=== PATIENT | male | born 1965 | race Caucasian/White ===

== ENCOUNTER 2020-10-28 14:01 | Outpatient (CLI) | payer OTHER, SELFPAY ==
[2020-10-28 14:42] LABS: Hematocrit 49.6 % (42.0-52.0); Hemoglobin 17.2 g/dL (14.0-18.0); Mean Corpuscular HGB Conc 34.7 g/dl (32-36); Mean Corpuscular Hemoglobin 29.6 pg (26-34); Mean Corpuscular Volume 85.4 fl (80-100); Mean Platelet Volume 8.9 fl (7.4-10.4); Platelet Count Result 303 k/mm3 (150-375); Red Blood Count 5.81 M/mm3 (4.6-6.20); Red Cell Distribution Width 12.9 % (11.5-14.5); White Blood Count 9.4 K/mm3 (4.5-10.0)
[2020-10-28 14:48] LABS: Alanine Aminotransferase 44 U/L (4-50); Albumin Level 4.7 g/dL (3.5-5.1); Alkaline Phosphatase 69 U/L (38-126); Anion Gap 8 mmol/L (8-16); Aspartate Amino Transferase 40 U/L (17-59); Blood Urea Nitrogen 15 mg/dL (9-20); Calcium 9.9 mg/dL (8.4-10.2); Carbon Dioxide 30 mmol/L (22-30); Chloride 105 mmol/L (98-107); Estimated Glomerular Filt Rate > 60; Glucose 94 mg/dL (75-110); Potassium 4.2 mmol/L (3.4-5.0); Sodium 143 mmol/L (137-145)
[2020-10-28 14:49] LABS: Cholesterol 139 mg/dL (0-200); HDL Direct 37 mg/dL; Triglycerides 138 mg/dL (<150)
[2020-10-28 15:00] LABS: LDL Cholesterol Direct 69 mg/dL
== END 2020-10-28 14:02 | disposition home or self-care (01) ==
PROVIDERS: PCP Family Medicine; Referring Provider Nurse Practitioner Family; Visit Provider Family Medicine
DX: E78.2 Mixed hyperlipidemia (principal); R10.9 Unspecified abdominal pain
CPT/HCPCS: 36415; 80053; 80061; 85027

== ENCOUNTER → 2021-03-05 15:10 | Outpatient (CLI) | payer OTHER, SELFPAY ==
--- NOTE | ~2021-03-05 | XR_ITS ---
XR abdomen/kub 1V DATE: 03/05/2021 15:33 INDICATION: Abdominal pain TECHNIQUE: AP rejection, 2 views COMPARISON: 10/02/2019 CT abdomen pelvis FINDINGS: There is a moderately prominent of fecal material in the colon but no apparent bowel obstru ction. The psoas shadows are intact. No visceromegaly or significant abnormal calcification is noted. Heart size appears normal. Lung bases appear clear. Degenerative spurring of the thoracic and lumbar spine. IMPRESSION: Nonspecific abdomen Reviewed, dictated and finalized at [facility]. Reviewed, dictated and finalized at location [facility]. IMPRESSION: Nonspecific abdomen
== END ==
PROVIDERS: Visit Provider Nurse Practitioner Family
DX: R10.9 Unspecified abdominal pain (principal); R31.9 Hematuria, unspecified
CPT/HCPCS: 74018

== ENCOUNTER → 2021-03-30 09:23 | Outpatient (CLI) | payer OTHER, SELFPAY ==
--- NOTE | ~2021-03-30 | CT_ITS ---
EXAMINATION: CT abdomen pelvis w con EXAM DATE: 03/30/2021 10:10 INDICATION: Upper abdominal pain. TECHNIQUE: Spiral CT of the abdomen and pelvis was performed following intravenous injection of 100 m L Omnipaque 350. Axial, coronal and sagittal images of the abdomen and pelvis were reviewed. The do se-length product (DLP) for this examination was 1160.91 mGy-cm. The exposure was tailored according to patient size (auto mA exposure control), and iterative reconstruction (ASIR) was used as addition al dose reduction technique. Comparison is made to prior examination from 10/02/2019. FINDINGS: The liver, spleen, adrenal glands and pancreas are unremarkable. Gallbladder is unremarka ble. No biliary obstruction. Portal and splenic veins are patent. Kidneys enhance symmetrically. There is no hydronephrosis. The prostate is unremarkable. The bladder is unremarkable. There is n o retroperitoneal or pelvic lymphadenopathy. There is mild scattered arteriosclerotic disease. Smal l umbilical and left inguinal fat-containing hernias. Small to moderate-sized right inguinal fat-cont aining hernia. The appendix is normal. There is moderate colonic diverticulosis. There is no adjacent inflammatory change to suggest diverticulitis. The stomach and small bowel are unremarkable. There is expected a mount of colonic stool. No free intraperitoneal gas. The heart is normal in size. There are no p ericardial or pleural effusions. The lung bases are unremarkable. There are no osteoblastic or oste olytic lesions identified. IMPRESSION: 1. No acute intra-abdominal findings. 2. Moderate colonic diverticulosis. 3. Fat-containing inguinal, umbilical hernias. Reviewed, dictated and finalized at location [facility].
[2021-03-30 09:41] LABS: Estimated Glomerular Filt Rate > 60
== END ==
PROVIDERS: PCP Family Medicine; Visit Provider Family Medicine
DX: R10.9 Unspecified abdominal pain (principal); K57.30 Diverticulosis of large intestine without perforation or abscess without bleeding; K42.9 Umbilical hernia without obstruction or gangrene; K40.90 Unilateral inguinal hernia, without obstruction or gangrene, not specified as recurrent
CPT/HCPCS: 74177; Q9967

== ENCOUNTER 2021-11-27 01:20 | Day surgery (SDC) | payer OTHER, SELFPAY ==
[2021-11-23 15:48] VITALS: BMI 33.9
--- NOTE | 2021-11-26 13:17 | WPDGICN ---
Assessment and Plan Assessment and plan (1) Colon cancer screening: Code(s): Z12.11 - Encounter for screening for malignant neoplasm of colon Status: Acute Assessment and Plan: Colonoscopy with possible biopsy or polypectomy or cautery or injection of substances. GI Consult Note Consult date/time: 11/26/21 13:17 HPI: Scottie Pereira is a 56 year old male was found have multiple polyps about 3.5 years ago. He had several adenomas removed from his descending colon at that time, as well as hyperplastic rectal polyps. Review of Systems Review of Systems: All systems reviewed & are unremarkable except as noted in HPI and below PMFSH Past Medical History Medical History BMI 34.0-34.9,adult COVID-19 Family History Family History Mother Family history of multiple sclerosis Grandparent Cerebrovascular accident Family history of lung cancer Diabetes mellitus Father No problems noted. Sibling Lupus Social History Social History Smoking status: Never smoker Second hand tobacco smoke exposure: No Alcohol intake: current Drinks per week: 1 Substance use: never Substance use type: does not use Living arrangements: alone Additional occupation/education comments: marketing Gender identity (if verbalized by the patient): Male Spiritual care concerns: No Meds Home Medications and Allergies Home Medications Medication Instructions Recorded Confirmed Type lisinopril 40 mg tablet 40 mg PO DAILY #90 tablet 07/13/21 11/23/21 Rx atorvastatin 40 mg tablet See Rx Instructions .ROUTE 09/17/21 11/23/21 Rx .COMPLEX #90 tablet hydrochlorothiazide 25 mg tablet 25 mg PO DAILY #90 tablet 09/24/21 11/23/21 Rx Allergies Allergy/AdvReac Type Severity Reaction Status Date / Time No Known Allergies Allergy Verified 11/27/21 09:02 Exam Resp: Auscultation: clear to auscultation bilaterally Cardio: Rate: regular rate Rhythm: regular rhythm GI: GI Palp: Yes Soft to palpation and No Tenderness to palpation present (GI)
[2021-11-27 09:03] VITALS: BP 147/90; PULSE 104; RESP 18; TEMP 36.3; O2SAT 98; BMI 33.3
[2021-11-27] MEDS: LACTATED RINGERS 1,000 ML 150 ML IV CONT (09:13)
--- NOTE | 2021-11-27 09:21 | P.PNAN_ITS ---
Anes - Initial Pre Proc Eval Procedure: Operation Date: 11/27/21 10:00 Proposed Procedures p Screening Colonoscopy - Doug Medley MD Date/Time: 11/27/21 09:21 Surgeon: Doug Medley MD Pre Op Diagnosis: hx of colon polyps, neoplasm screening Patient Data Age: 56 Gender: M Height: 1.83 m Weight: 111.6 kg Last Vital Signs Temp 97.4 F L 11/27/21 09:03 Pulse 104 H 11/27/21 09:03 Resp 18 11/27/21 09:03 BP 147/90 H 11/27/21 09:03 Pulse Ox 98 11/27/21 09:03 Allergies Allergy/AdvReac Type Severity Reaction Status Date / Time No Known Allergies Allergy Verified 11/27/21 09:02 Home Medications Medication Instructions Recorded Confirmed Type lisinopril 40 mg tablet 40 mg PO DAILY #90 tablet 07/13/21 11/23/21 Rx atorvastatin 40 mg tablet See Rx Instructions .ROUTE 09/17/21 11/23/21 Rx .COMPLEX #90 tablet hydrochlorothiazide 25 mg tablet 25 mg PO DAILY #90 tablet 09/24/21 11/23/21 Rx Patient hx anesthesia problems: none Family hx anesthesia problems: none Results Review: All pre-operative results and documents have been reviewed as part of the pre-operative evaluation. [facility] Past Medical History Medical History BMI 34.0-34.9,adult COVID-19 Family History Family History Mother Family history of multiple sclerosis Grandparent Cerebrovascular accident Family history of lung cancer Diabetes mellitus Father No problems noted. Sibling Lupus Social History Social History Smoking status: Never smoker Second hand tobacco smoke exposure: No Alcohol intake: current Drinks per week: 1 Substance use: never Substance use type: does not use Living arrangements: alone Additional occupation/education comments: marketing Gender identity (if verbalized by the patient): Male Spiritual care concerns: No Anes - Eval Final PreProcedure Day of Procedure 11/27/21 09:21 Patient weight: obese Heart: regular rate and rhythm Lungs: clear to auscultation Airway: Mallampati scale class II Neurological: alert and oriented Last oral intake: >/= 8 hours ASA classification: III Emergent: no Anesthetic plan: proceed Anesthesia type and monitoring: general GIVS and standard monitoring Results Review: All pre-operative results and documents have been reviewed as part of the pre-operative evaluation. Informed Consent: The patient's anesthetic plan and its attendant risks and benefits were discussed with the patient/family/POA. Questions were solicited and answers provided to the satisfaction of the patient/family/POA.
[2021-11-27] MEDS: SIMETHICONE ORAL SUSPENSION 20 MG/0.3 ML 30 ML BOTTLE 0.6 ML IRRIGATION (10:04)
[2021-11-27 10:12] VITALS: BP 109/63; PULSE 97; RESP 26; O2SAT 98
[2021-11-27 10:22] VITALS: BP 110/70; PULSE 80; RESP 17; O2SAT 98
[2021-11-27 10:39] VITALS: BP 116/70; PULSE 77; RESP 16; O2SAT 98
== END 2021-11-27 10:50 | disposition home or self-care (01) ==
PROVIDERS: PCP Family Medicine; Visit Provider Internal Medicine Gastroenterology
PROC: 0DJD8ZZ Inspection of Lower Intestinal Tract, Via Natural or Artificial Opening Endoscopic (ICD-10-PCS; CPT 45378; principal; 2021-11-27 10:00)
DX: Z12.11 Encounter for screening for malignant neoplasm of colon (principal); K57.30 Diverticulosis of large intestine without perforation or abscess without bleeding
CPT/HCPCS: G0105; J2001; J2704; J7120

== ENCOUNTER → 2022-10-29 10:06 | Outpatient (CLI) | payer OTHER, SELFPAY ==
--- NOTE | ~2022-10-29 | XR_ITS ---
Right ankle Technique: AP and lateral views were obtained. Clinical History: Pain Findings: No acute fracture or dislocation is seen. Osseous alignment is anatomic. Ankle mortise and other visualized joint spaces are preserved. Lateral soft tissue swelling noted. Enthesopathic change noted at the Achilles tendon insertion. Small plantar calcaneal spur present. Impression: No acute fracture or dislocation. Lateral soft tissue swelling. Other chronic findings as above. Reviewed, dictated and finalized at location . [employer] Impression: No acute fracture or dislocation. Lateral soft tissue swelling. Other chronic findings as above.
== END ==
PROVIDERS: PCP Family Medicine; Visit Provider Nurse Practitioner Family
DX: M25.571 Pain in right ankle and joints of right foot (principal); R60.9 Edema, unspecified
CPT/HCPCS: 73600

== ENCOUNTER → 2023-02-18 07:08 | Outpatient (CLI) | payer OTHER, SELFPAY ==
--- NOTE | ~2023-02-18 | XR_ITS ---
Lumbosacral Spine: AP and lateral views Clinical History: Pain Findings: The normal lordotic curve is maintained. The vertebral bodies and posterior elements are i ntact. The intervertebral disc spaces are preserved. There are prominent anterior osteophytes extend ing from L1 through L4. There is severe facet arthropathy at L4-L5 and L5-S1. There is moderate facet arthropathy upper lumbar spine. The sacroiliac joints are normally outlined. Impression: Moderate degenerative spondylosis, as above. Reviewed, dictated and finalized at location [facility]. Impression: Moderate degenerative spondylosis, as above.
== END ==
PROVIDERS: PCP Family Medicine; Visit Provider Nurse Practitioner Family
DX: M47.817 Spondylosis without myelopathy or radiculopathy, lumbosacral region (principal)
CPT/HCPCS: 72100

== ENCOUNTER → 2023-07-20 12:54 | Outpatient (CLI) | payer OTHER, SELFPAY ==
--- NOTE | ~2023-07-20 | XR_ITS ---
EXAMINATION: XR ankle LT 2V DATE: 07/20/2023 13:20 INDICATION: Left ankle effusion and swelling and pain. TECHNIQUE: 2 views of left ankle were obtained. COMPARISON: None. FINDINGS: Bone alignment is normal. No fracture. There is mild osteoarthritis of talonavicular joint. There is heterotopic ossification distal to medial malleolus. There are enthesophytes at the posteri or and plantar aspects of calcaneal tuberosity. IMPRESSION: 1. Mild talonavicular joint osteoarthritis. Reviewed, dictated and finalized at location [facility].
== END ==
PROVIDERS: PCP Family Medicine; Visit Provider Nurse Practitioner Family
DX: M19.072 Primary osteoarthritis, left ankle and foot (principal)
CPT/HCPCS: 73600

== ENCOUNTER → 2023-09-09 12:32 | Outpatient (CLI) | payer OTHER, SELFPAY ==
--- NOTE | ~2023-09-09 | XR_ITS ---
EXAMINATION: XR thoracic spine 3V DATE: 09/09/2023 12:50 INDICATION: Thoracic spine pain TECHNIQUE: AP, lateral and lateral swimmer's views of the thoracic spine were obtained. COMPARISON: None. FINDINGS: Bone alignment is normal. There is no fracture. There is mild loss of intervertebral disc s pace height at multiple levels in the thoracic spine. The vertebral body heights are maintained. Ther e are bridging osteophytes at multiple levels in the spine, consistent with diffuse idiopathic skelet al hyperostosis (DISH). IMPRESSION: 1. No acute osseous abnormality. Reviewed, dictated and finalized at location [facility]. [employer] ADMINISTRATOR
== END ==
PROVIDERS: PCP Family Medicine; Visit Provider Nurse Practitioner Family
DX: M54.6 Pain in thoracic spine (principal)
CPT/HCPCS: 72072

== ENCOUNTER 2023-11-19 14:09 | Emergency (ER) | payer OTHER, SELFPAY ==
[2023-11-19 14:20] VITALS: BP 155/93; PULSE 93; RESP 16; TEMP 36.8; O2SAT 100
--- NOTE | 2023-11-19 15:40 | ED.EXTPRO ---
HPI - Extremity Problem General Chief complaint: Extremity Problem,Nontraumatic Stated complaint: Foot Pain Time Seen by Provider: 11/19/23 14:50 Source: patient and RN notes reviewed Mode of arrival: ambulatory Limitations: no limitations History of Present Illness HPI Narrative: Patient presents today complaining of right foot pain and redness x5 days. Symptoms have been progressively worsening since onset. Currently rates pain 8/10 with weight-bearing, 3/10 at rest. He has been taking ibuprofen with some mild relief. Denies numbness or tingling in the leg or foot. No pain in the lower leg or calf. Patient takes allopurinol and is just getting over a gout flare in the left ankle. Related Data Allergies Allergy/AdvReac Type Severity Reaction Status Date / Time No Known Allergies Allergy Verified 11/19/23 14:13 Review of Systems Review of Systems: CONSTITUTIONAL: Denies body aches, fever, chills, or sweats. EYES: Denies visual changes, redness, or discharge. ENT: Denies rhinorrhea, congestion, sore throat, or otalgia. CARDIOVASCULAR: Denies chest pain, palpitations, or edema. RESPIRATORY: Denies cough or dyspnea. GASTROINTESTINAL: Denies abdominal pain, nausea, vomiting, or diarrhea. GENITOURINARY: Denies dysuria or hematuria. SKIN: Denies rash, itching, or wounds. MUSCULOSKELETAL: Denies back pain, or myalgia.+ right foot pain, redness, swelling NEUROLOGIC: Denies headache, numbness, tingling, or weakness. PSYCH: Denies depression or anxiety. [facility] Past Medical History Medical History BMI 31.0-31.9,adult BMI 33.0-33.9,adult BMI 34.0-34.9,adult COVID-19 Family History Family History Mother Family history of multiple sclerosis Grandparent Cerebrovascular accident Family history of lung cancer Diabetes mellitus Father No problems noted. Sibling Lupus Social History Social History Smoking status: Never smoker Second hand tobacco smoke exposure: No Alcohol intake: current Drinks per week: 1 Substance use: never Substance use type: does not use Lack of Transportation: No Lack of Food: Never True Current Housing: I Have Housing Concerned About Future Housing: No Difficulty Paying Gas/Electric Bills: No Difficulty Paying for Meds: No Currently Unemployed: No Education: Bachelor's Degree Difficulty w/ Childcare or Family Care: No Living arrangements: alone Occupation/Education: occupation Additional occupation/education comments: marketing Gender identity (if verbalized by the patient): Male Spiritual care concerns: No Comments At time of signature, I have reviewed and agree with nursing past medical, surgical, social and family history unless otherwise noted. Please see nursing chart for further information. There is no relevant family history pertinent to the presenting complaint Exam Narrative: GENERAL: Well-appearing, well-nourished, and in no acute distress. HEAD: Normocephalic, atraumatic. EYES: EOMI. No redness or drainage. Conjunctivae normal. ENT: Mucous membranes pink and moist. NECK: Normal AROM. CHEST: No respiratory distress. EXTREMITIES: Right foot: Moderate erythema over the dorsum of the foot with mild edema. The symptoms do not extend past the foot onto the ankle. Tenderness to the foot and on to the anterior ankle. No tenderness to the medial or lateral ankle. No tenderness, erythema, or edema to the lower leg. Negative Homans. Distal sensation intact. Capillary refill normal. Pedal pulse normal. Full range of motion of the ankle with mild increased pain in the anterior ankle. SKIN: Warm, dry, no rash. Capillary refill normal. Normal skin turgor. NEURO: No focal deficits. Alert and oriented x3. Gait steady. PSYCH: No
== END 2023-11-19 15:26 | disposition home or self-care (01) ==
PROVIDERS: Emergency Provider Nurse Practitioner; PCP Family Medicine
DX: M10.9 Gout, unspecified (principal); Z86.16 Personal history of COVID-19
CPT/HCPCS: 99213; G0463

== ENCOUNTER 2023-11-21 16:49 | Outpatient (CLI) | payer OTHER, SELFPAY ==
[2023-11-21 17:20] LABS: Alanine Aminotransferase 27 U/L (6-50); Albumin Level 4.3 g/dL (3.5-5.1); Alkaline Phosphatase 96 U/L (38-126); Anion Gap 8 mmol/L (8-16); Aspartate Amino Transferase 26 U/L (17-59); Bilirubin,Total 0.7 mg/dL (0.2-1.3); Blood Urea Nitrogen 23 mg/dL (9-20); Calcium 9.6 mg/dL (8.4-10.2); Carbon Dioxide 29 mmol/L (22-30); Chloride 103 mmol/L (98-107); Estimated Glomerular Filt Rate > 60; Glucose 150 mg/dL (65-110); Potassium 3.9 mmol/L (3.4-5.0); Sodium 140 mmol/L (137-145); Uric Acid 6.3 mg/dL (3.5-8.5)
== END 2023-11-21 16:50 | disposition home or self-care (01) ==
LOC: ANHLAB 16:51
PROVIDERS: PCP Family Medicine; Visit Provider Podiatrist Foot & Ankle Surgery
DX: M10.9 Gout, unspecified (principal)
CPT/HCPCS: 36415; 80053; 84550

== ENCOUNTER 2024-02-25 08:21 | Outpatient (CLI) | payer OTHER, SELFPAY ==
--- NOTE | ~2024-02-25 | MR_ITS ---
MRI of the thoracic spine Clinical History: Ankylosing hyperostosis Technique: Axial T2-weighted and gradient images, and sagittal T1-weighted, T2-weighted, and STIR matthieu ges were acquired. Findings: There is no acute fracture or subluxation of the thoracic spine. Possible minimal chronic anterior wedging deformities of the lower thoracic spine. No suspicious bone marrow signal abnormality seen. There is mild degenerative change of the thoracic spine. No significant disc bulge or herniation seen at any thoracic level. No spinal canal stenosis identifi ed. Neural foramina appear intact. No epidural mass or collection. Paravertebral soft tissues are unremarkable. Impression: Mild degenerative spondylosis, as above. Possible minimal chronic anterior wedging deformities of lower thoracic spine vertebral bodies. Reviewed, dictated and finalized at [facility]. Impression: Mild degenerative spondylosis, as above. Possible minimal chronic anterior wedging deformities of lower thoracic spine v ertebral bodies.
== END 2024-02-25 08:22 ==
PROVIDERS: PCP Family Medicine; Visit Provider Nurse Practitioner Family
DX: M48.10 Ankylosing hyperostosis [Forestier], site unspecified (principal); M54.6 Pain in thoracic spine
CPT/HCPCS: 72146

== ENCOUNTER 2024-02-27 16:04 | Outpatient (CLI) | payer OTHER, SELFPAY ==
[2024-02-27 17:06] LABS: Alanine Aminotransferase 25 U/L (6-50); Alkaline Phosphatase 85 U/L (38-126); Anion Gap 5 mmol/L (4-12); Aspartate Amino Transferase 23 U/L (17-59); Bilirubin,Total 0.8 mg/dL (0.2-1.3); Blood Urea Nitrogen 19 mg/dL (9-20); Calcium 8.9 mg/dL (8.4-10.2); Carbon Dioxide 30 mmol/L (22-30); Chloride 105 mmol/L (98-107); Estimated Glomerular Filt Rate > 60; Glucose 123 mg/dL (65-110); Sodium 140 mmol/L (137-145); Uric Acid 5.9 mg/dL (3.5-8.5)
== END 2024-02-27 16:05 | disposition home or self-care (01) ==
LOC: ANHLAB 16:05
PROVIDERS: PCP Family Medicine; Visit Provider Podiatrist Foot & Ankle Surgery
DX: M10.079 Idiopathic gout, unspecified ankle and foot (principal)
CPT/HCPCS: 36415; 80053; 84550

== ENCOUNTER 2024-03-13 07:04 | Outpatient (CLI) | payer OTHER, SELFPAY ==
[2024-03-13 07:20] LABS: Basophils Absolute Auto 0.1 K/mm3 (0.0-0.1); Basophils Percent Auto 0.8 % (0.2-1.2); Eosinophils Absolute Auto 0.2 K/mm3 (0-0.3); Eosinophils Percent Auto 2.3 % (0-4.4); Hematocrit 45.3 % (42.0-52.0); Hemoglobin 15.4 g/dL (14.0-18.0); Immature Granulocyte Absolute 0.02 K/mm3 (0.00-0.031); Immature Granulocyte Percent A 0.3 % (0-0.5); Lymphocytes Absolute Auto 1.92 K/mm3 (0.9-3.2); Lymphocytes Percent Auto 24.4 % (18.3-44.2); Mean Corpuscular Hemoglobin 28.9 pg (26-34); Mean Corpuscular Volume 85.2 fl (80-100); Mean Platelet Volume 9.4 fl (7.4-10.4); Monocytes Absolute Auto 0.6 K/mm3 (0.1-0.6); Neutrophils Absolute Auto 5.1 K/mm3 (1.3-6.7); Neutrophils Percent Auto 64.2 % (45.5-73.1); Platelet Count Result 219 k/mm3 (150-375); Red Blood Count 5.32 M/mm3 (4.6-6.20); Red Cell Distribution Width 13.6 % (11.5-14.5); White Blood Count 7.9 K/mm3 (4.5-10.0)
[2024-03-13 07:49] LABS: Anion Gap 7 mmol/L (4-12); Blood Urea Nitrogen 22 mg/dL (9-20); Calcium 9.2 mg/dL (8.4-10.2); Carbon Dioxide 27 mmol/L (22-30); Chloride 107 mmol/L (98-107); Cholesterol 161 mg/dL (0-200); Estimated Glomerular Filt Rate > 60; Glucose 102 mg/dL (65-110); HDL Direct 34 mg/dL; Potassium 3.8 mmol/L (3.4-5.0); Sodium 141 mmol/L (137-145); Triglycerides 259 mg/dL (<150)
[2024-03-13 08:01] LABS: LDL Cholesterol Direct 90 mg/dL
[2024-03-13 08:21] LABS: Prostate Specific Antigen 1.1 ng/mL (< OR = 4.0)
== END 2024-03-13 07:05 | disposition home or self-care (01) ==
LOC: ANHLAB 07:05
PROVIDERS: PCP Family Medicine; Visit Provider Physician Assistant Medical
DX: Z12.5 Encounter for screening for malignant neoplasm of prostate (principal); E78.2 Mixed hyperlipidemia; I10 Essential (primary) hypertension; I49.9 Cardiac arrhythmia, unspecified
CPT/HCPCS: 36415; 80048; 80061; 84153; 84443; 85025; G0103

== ENCOUNTER 2024-04-03 09:49 | Outpatient (CLI) | payer OTHER, SELFPAY ==
--- NOTE | 2024-04-06 12:10 | WPDHOLTEREM ---
Holter/Event Monitor Holter/Event Monitor Date of procedure: 04/03/24 Holter/Event Procedure: 48 Hr Holter Monitor Indications: Arrhythmia Conclusion: 1. 48 hour holter monitor on 04/03/24. 2. Underlying rhythm is sinus rhythm. HR range 55-103 bpm; average HR 72 bpm. 3. There are 2 premature supraventricular complexes. No supraventricular tachycardia. 4. There are 2,222 premature ventricular complexes, 6 ventricular bigeminy and 8 ventricular trigeminy. No ventricular tachycardia. 5. No sinoatrial or atrioventricular blocks. No significant pauses greater than 2 seconds. 6. No symptoms available for correlation.
== END 2024-04-03 09:50 | disposition home or self-care (01) ==
PROVIDERS: PCP Family Medicine; Visit Provider Physician Assistant Medical
DX: I49.9 Cardiac arrhythmia, unspecified (principal)
CPT/HCPCS: 93225; 93226

== ENCOUNTER 2024-06-19 06:59 | Outpatient (CLI) | payer OTHER, SELFPAY ==
--- NOTE | ~2024-06-19 | XR_ITS ---
2 VIEWS THORACOLUMBAR SPINE Ordering provider: Lucretia Motta NP History: . 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 . Comparison: September 09, 2023 FINDINGS: VERTEBRAL BODIES: Normal height and alignment. No visible fracture or subluxation. Degenerative hutton es of the spine. DISK SPACES: Normal. SOFT TISSUES: Normal. IMPRESSION: No acute osseous abnormality of the thoracolumbar spine. Reviewed, dictated and finalized at location A.
== END 2024-06-19 07:00 | disposition home or self-care (01) ==
PROVIDERS: PCP Family Medicine
DX: M47.814 Spondylosis without myelopathy or radiculopathy, thoracic region (principal)
CPT/HCPCS: 72080

== ENCOUNTER 2024-06-19 07:22 | Outpatient (CLI) | payer OTHER, SELFPAY ==
[2024-06-19 08:47] LABS: Anion Gap 6 mmol/L (4-12); Blood Urea Nitrogen 14 mg/dL (9-20); Calcium 9.1 mg/dL (8.4-10.2); Carbon Dioxide 28 mmol/L (22-30); Chloride 105 mmol/L (98-107); Estimated Glomerular Filt Rate > 60; Glucose 101 mg/dL (65-110); Sodium 139 mmol/L (137-145); Uric Acid 5.3 mg/dL (3.5-8.5)
== END 2024-06-19 07:23 | disposition home or self-care (01) ==
PROVIDERS: PCP Family Medicine; Visit Provider Physician Assistant Medical
DX: M10.9 Gout, unspecified (principal); N28.9 Disorder of kidney and ureter, unspecified
CPT/HCPCS: 36415; 80048; 84550

== ENCOUNTER 2024-08-30 08:19 | Outpatient (CLI) | payer OTHER, SELFPAY ==
[2024-09-24 13:40] VITALS: BMI 32.8
--- NOTE | 2024-09-24 13:40 | P.SLEEP_ITS ---
Sleep Study - Home Unattended Date of Study: 08/30/24 Ordering Provider: Tian Scott MD Interpreting Provider: Mariaelena Sharpe DO Home Sleep Study Type: Watch PAT Height: 1.8 m Weight: 106.594 kg Body Mass Index: 32.8 Neck Circumference (inches): 18 [place]: 4 Reason for Sleep Study Snoring, difficulty staying asleep Sleep History The patient is a 59-year-old male that had a sleep study ordered by his ca rdiologist for evaluation of sleep apnea for the patient admits to snoring loudly and difficulty staying asleep. He denies interruptions in breathing while asleep. He denies choking or gasping at night. He denies having trouble breathing on his back. He does have morning headaches. Does have a dry or sore mouth/ throat in the morning. He denies nocturnal heartburn. He does urinate twice throughout the night. He denies having trouble falling asleep. He does have difficulty returning to sleep if he wakes up throughout the night. He denies any hypnotic or sedative use. He denies feeling anxious about sleep. He does feel tired or sleepy during the day. He does feel tired in the morning. He denies having hours to fall asleep during the day. He does feel drowsy while driving. He denies sleep paralysis, cataplexy and hypnagogic / hypnopompic hallucinations. He denies clenching or grinding his teeth. He denies kicking or jerking his legs excessively. He denies having a restless feeling in his legs. He goes to bed at 9:30 p.m. on work days and 10:00 p.m. on his days. It takes him 30 minutes to fall asleep. He gets 7 hours of sleep per night. His sleep is not all restorative on days off. He denies taking any planned naps. He denies dream enactment behavior. He denies sleep walking. He denies consuming any caffeinated beverages throughout the day. He denies tobacco and alcohol use. He exercises 3-4 nights per week. [facility] Past Medical History Medical History COVID-19 BMI 34.0-34.9,adult Family History Family History Mother Family history of multiple sclerosis Grandparent Cerebrovascular accident Family history of lung cancer Diabetes mellitus Father No problems noted. Sibling Lupus Social History Social History Smoking status: Never smoker Second hand tobacco smoke exposure: No Alcohol intake: current Drinks per week: 1 Substance use: never Substance use type: does not use Do You Feel Safe in your Home?: Yes Lack of Transportation: No Lack of Food: Never True Current Housing: I Have Housing Concerned About Future Housing: No Difficulty Paying Gas/Electric Bills: No Difficulty Paying for Meds: No Currently Unemployed: No Education: Bachelor's Degree Difficulty w/ Childcare or Family Care: No Living arrangements: alone Occupation/Education: occupation Additional occupation/education comments: marketing Gender identity (if verbalized by the patient): Male Spiritual care concerns: No Medications Home Medications ?Medication ?Instructions ?Recorded ?Confirmed ?Type lisinopril 40 mg tablet 40 mg PO DAILY #90 tabs 01/04/24 06/25/24 Rx buspirone 7.5 mg tablet 7.5 mg PO BID #180 tabs 04/18/24 06/25/24 Rx atorvastatin 40 mg tablet See Rx Instructions .Route 07/30/24 Rx .COMPLEX #90 tabs hydrochlorothiazide 12.5 mg tablet 12.5 mg PO DAILY #30 tabs 08/12/24 Rx allopurinol 100 mg tablet 100 mg PO BID #180 tabs 08/23/24 Rx metoprolol succinate 100 mg 100 mg PO DAILY #90 tabs 09/17/24 Rx tablet,extended release 24 hr Sleep Procedure The sleep study was completed using [employer] a technically adequate device with seven channels: peripheral arterial tone, actigraphy, body position, snore, respiratory movement, pulse oximetry, sleep staging, and heart rate. Prior to using the device, the patient received verbal and written instructions for its application and was provided with the help desk phone number for additional telephonic instruction with 24-hour availability of qualified personnel to answer questions. The study was scored using CMS guidelines. Sleep Architecture The total recording time is 7 hrs, 52 min. The total sleep time is 6 hrs, 57 min. Sleep latency is 19 minutes. REM latency is 78 minutes. The patient had 7 episodes of waking. Sleep architecture shows 16.0% deep sleep, 60.0% light sleep, and (as % Total Sleep Time) showed NREM (Light 60.0%; Deep 16.0%), and a 23.9% stage REM. The patient spent 70.6% of total sleep time in the supine position. Sleep efficiency was 88.35. Respiratory Analysis The overall AHI (pAHI 4%:) is 15.0. The central AHI is 3.2. The AHI was 9.0 in NREM and 33.4 in REM sleep. The AHI was 20.2 in Supine and 1.6 in Non-supine sleep. Percent of Griffin Garcia respirations is 0.0. Oximetry Data The oxygen desaturation index (NICK 4%:) is 14.4. The mean saturation is 93%, and the lowest saturation is 82%. Time spent with saturation < 88% is 7.9 minutes. Snoring Profile Snoring average intensity is 40 dB. The patient snored above 45 decibels for 7.5 minutes, 1.8% of sleep time. Cardiac Profile The average pulse rate is 61 beats per minutes. The lowest pulse rate is 51 bpm. The highest pulse rate reported is 88 bpm. Atrial fibrillation was not detected. Premature beats occur <0.1 per minute. Assessment and Plan Assessment and Plan (1) ANTONI (obstructive sleep apnea): Code(s): G47.33 - Obstructive sleep apnea (adult) (pediatric) Status: Acute Assessment and Plan: The patient had an overall AHI of 15.0 with desaturation down to 82%. This is consistent with moderate sleep apnea. I recommend that the patient be prescribed AutoPAP 5-15 cm H2O, CPAP mask/filters/tubing and heated humidity. This should be used with all episodes of sleep.? Compliance should be reviewed within 31-90 days of starting therapy for usage greater than 4 hours per night greater than 70% of the nights. The patient should be asked about symptoms such as?excessive daytime sleepiness, quality of sleep, decreased nocturia, increased?mental functioning such as memory, mood, and concentration. Data The data obtained during this sleep study is adequate for interpretation. Certification This sleep study has been reviewed by a board certified sleep medicine physician.
== END 2024-08-31 15:03 | disposition home or self-care (01) ==
LOC: ANHCSM 08:20
PROVIDERS: PCP Family Medicine; Visit Provider Internal Medicine Cardiovascular Disease
DX: G47.33 Obstructive sleep apnea (adult) (pediatric) (principal); G47.10 Hypersomnia, unspecified
CPT/HCPCS: 95800

== ENCOUNTER 2024-11-01 07:04 | Outpatient (CLI) | payer OTHER, SELFPAY ==
--- OUTSIDE RECORDS SUMMARY | 2024-11-01 07:07 | XMS_ITS | Referral Summary ---
Author Organization [facility] Address [address] [place] [address] Care Team Providers Care Subassembly Assembler Name Role Phone Sanket Dee MD Primary Care Provider [phone] Encounters Date Type Department Care Team Description 10/02/2024 9:00 AM ULTRASOUND TECHNOL Office Visit [facility] Medical [facility] Cardiology at [address] [place] [address] Tian Lopez MD Essential hypertension (Primary Dx); Ventricular premature depolarization; Obesity (BMI 30.0-34.9); ANTONI (obstructive sleep apnea) 08/30/2024 Orders Only [facility] [place] Health Information Management [address] [place] [address] Tian Lopez MD 08/03/2024 2:00 PM ULTRASOUND TECHNOL Ancillary Procedure [facility] Medical [facility] Cardiology at [address] [place] [address] Ventricular premature depolarization; Essential hypertension from Last 3 Months Allergies No known active allergies Medications allopurinoL (ZYLOPRIM) 100 mg tablet Take 1 tablet (100 mg total) by mouth daily 06/05/2024 Active busPIRone (BUSPAR) 7.5 mg tablet Take 1 tablet (7.5 mg total) by mouth 2 (two) times a day 07/13/2024 Active atorvastatin (LIPITOR) 40 mg tablet Take 1 tablet (40 mg total) by mouth daily 04/23/2024 Active hydroCHLOROthiaz jose 12.5 mg tablet Take 1 tablet (12.5 mg total) by mouth daily 07/13/2024 Active lisinopriL (PRINIVIL,ZESTRI L) 40 mg tablet Take 1 tablet (40 mg total) by mouth daily 07/02/2024 Active metoprolol XL (TOPROL-XL) 100 mg 24 hr tablet Take 1 tablet (100 mg total) by mouth daily 06/25/2024 Active amLODIPine (NORVASC) 5 mg tabletIndication s:hypertension Take 1 tablet (5 mg total) by mouth daily 30 tablet 11 07/18/2024 Active Active Problems Problem Noted Date Diagnosed Date ANTONI (obstructive sleep apnea) 10/02/2024 Obesity (BMI 30.0-34.9) 07/18/2024 Hypersomnolence 07/18/2024 Essential hypertension 07/18/2024 Lipid screening 07/18/2024 Ventricular premature depolarization 07/18/2024 Social History Tobacco Use Types Packs/Day Years Used Date Smoking Tobacco: Never Cigarettes Smokeless Tobacco: Never Tobacco Cessation:Counseling Given: Not Answered Sex and Gender Information Value Date Recorded Sex Assigned at Not on file Legal Sex Male 4:51 AM ULTRASOUND TECHNOL Gender Identity Not on file Sexual Orientation Not on file Last Filed Vital Signs Vital Sign Reading Time Taken Comments Blood Pressure 128/86 10/02/2024 8:49 AM ULTRASOUND TECHNOL Pulse 69 10/02/2024 8:49 AM ULTRASOUND TECHNOL Temperature - - Respiratory Rate 14 07/18/2024 11:11 AM CDT Oxygen Saturation 96% 10/02/2024 8:49 AM ULTRASOUND TECHNOL Inhaled Oxygen Concentration - - Weight 112 kg (247 lb) 10/02/2024 8:49 AM ULTRASOUND TECHNOL Height 180.3 cm (5' 11 ) 10/02/2024 8:49 AM ULTRASOUND TECHNOL Body Mass Index 34.45 10/02/2024 8:49 AM ULTRASOUND TECHNOL Plan of Treatment Not on file Procedures Procedure Name Priority Date/Time Associated Diagnosis Comments SLEEP LAB/STUDY - RESULT 08/30/2024 TRANSTHORACIC ECHO (TTE) COMPLETE W DOPPLER/CF WO CONTRAST Routine 08/03/2024 2:26 PM ULTRASOUND TECHNOL Ventricular premature depolarization Essential hypertension from Last 3 Months Results * SLEEP LAB/STUDY - RESULT (08/30/2024) us Tian Lopez MD Edited Re sult - Final * TRANSTHORACIC ECHO (TTE) COMPLETE W DOPPLER/CF WO CONTRAST (08/03/2024 2:26 PM ULTRASOUND TECHNOL) Anatomical Region Laterality Modality Ultrasound 08/03/2024 1:53 PM ULTRASOUND TECHNOL Narrative 08/03/2024 5:16 PM ULTRASOUND TECHNOL [facility] Medical Group Cardiology [address] [facility], [address], [place] [address] P:[phone] P:[phone] Echocardiographic Report Patient Name: SCOTTIE PEREIRA A : 1965 Study Date: 08/03/2024 1:53:01 PM Gender: M Tech: Location: EDW Ref Provider: TIAN LOPEZ Height(Cm): 180 BSA: 2.31 Weight(Kg): 107 Heart Rate: 62 BP: 144 / 88 Quality: Good Order Provider: TIAN LOPEZ PROCEDURES: Echocardiographic Report: Transthoracic echocardiogram with complete 2D, M-Mode, and color Doppler examination. INDICATIONS: Hypertension, and Premature Ventricular Complexes. Measurements: 2D/MM Value Range Doppler Value Range EF Mod 67 AV Mean PG 4 mmHg EF Teich MM 52 % [ 52 - 72 ] AV Peak Catracho 1.25 m/s [ 1.00 - 1.70 ] LVIDd 2D 5.55 cm [ 4.20 - 5.80 ] AV Peak PG 6 mmHg LVIDd MM 6.22 cm [ 4.20 - 5.80 ] AV VTI 29.68 cm LVIDs 2D 3.87 cm [ 2.50 - 4.00 ] LVOT Peak Catracho 0.99 m/s [ 0.70 - 1.10 ] LVIDs MM 4.53 cm [ 2.50 - 4.00 ] LVOT VTI 23.81 cm LVPWd 2D 1.02 cm [ 0.60 - 1.00 ] MV E Peak Catracho 0.88 m/s [ 0.60 - 1.30 ] LVPWd MM 0.89 cm [ 0.60 - 1.00 ] MV A Peak Catracho 0.63 m/s [ 1.00 - 1.20 ] IVSd 2D 1.16 cm [ 0.60 - 1.00 ] MV Decel Time 137 msec [ 104 - 258 ] IVSd MM 1.16 cm [ 0.60 - 1.00 ] PV Peak Catracho 1.02 m/s [ 0.40 - 0.80 ] LA Dimension MM 3.61 cm [ 3.00 - 4.00 ] TR Peak Catracho 2.93 m/s [ 1.00 - 2.80 ] AoR Diam MM 3.71 cm [ 3.10 - 3.70 ] TR Peak PG 34 mmHg LA Volume Index 20 cc/m2 [ 16 - 34 ] RVSP 37.00 mmHg [ 10.00 - 36.00 ] ACS MM 2.45 cm [ 1.50 - 2.60 ] E` 0.09 m/s E/E` 10 2D/MM Value Range Doppler Value Range - FINDINGS: Interpretation Site: Exam was interpreted at [facility]. Left Ventricle: Normal left ventricular systolic function. No focal wall motion abnormalities. Mild concentric left ventricular hypertrophy. Left ventricle cavity is upper limits of normal in size. Normal left ventricular diastolic function. Ejection fraction is visually estimated at 65-70 %. Ejection fraction is measured at 67 %. Right Ventricle: Normal right ventricular size. Normal right ventricular systolic function. Left Atrium: The left atrium is normal in size. Right Atrium: The right atrium is normal in size. Atrial Septum: Normal atrial septum. Mitral Valve: Normal appearance of the mitral valve. Mild mitral valve regurgitation. There is no hemodynamically significant mitral stenosis by Doppler. Aortic Valve: No evidence of hemodynamically significant aortic stenosis by Doppler. Aortic cusps appear mildly sclerotic. Trileaflet aortic valve. Mild aortic valve regurgitation. Tricuspid Valve: Normal appearance of the tricuspid valve. Mild pulmonary hypertension based on right ventricular systolic pressure. Estimated peak RVSP is 37 mmHg. Mild tricuspid regurgitation. Pulmonic Valve: Normal appearance of the pulmonic valve. No pulmonic stenosis. Mild pulmonic regurgitation. Pericardium: Normal pericardium with no significant pericardial effusion. Aorta: Aortic root is mildly dilated. IVC: Normal size and normal respiratory collapse consistent with normal right atrial pressure (<5 mmHg). CONCLUSIONS: Normal left ventricular systolic function. No focal wall motion abnormalities. Mild concentric left ventricular hypertrophy. Left ventricle cavity is upper limits of normal in size. Normal left ventricular diastolic function. Ejection fraction is visually estimated at 65-70 %. Ejection fraction is measured at 67 %. Normal right ventricular size. Normal right ventricular systolic function. Mild mitral valve regurgitation. Aortic cusps appear mildly sclerotic. Mild aortic valve regurgitation. Mild pulmonary hypertension based on right ventricular systolic pressure. Estimated peak RVSP is 37 mmHg. Mild tricuspid regurgitation. Mild pulmonic regurgitation. Aortic root is mildly dilated. Normal sinus rhythm. Electronically Signed By: Tian Lopez MD 2024-08-03 17:15:56 ULTRASOUND TECHNOL Procedure Note Tian Lopez MD - 08/03/2024 [facility] Medical Group Cardiology [address] [facility], [address], [place] [address] P:[phone] P:[phone] Echocardiographic Report Patient Name: SCOTTIE PEREIRA A : 1965 Study Date: 08/03/2024 1:53:01 PM Gender: M Tech: Location: EDW Ref Provider: TIAN LOPEZ Height(Cm): 180 BSA: 2.31 Weight(Kg): 107 Heart Rate: 62 BP: 144 / 88 Quality: Good Order Provider: TIAN LOPEZ PROCEDURES: Echocardiographic Report: Transthoracic echocardiogram with complete 2D, M-Mode, and color Dopplerexamination. INDICATIONS: Hypertension, and Premature Ventricular Complexes. Measurements: 2D/MM Value Range Doppler ValueRange EF Mod 67 AV Mean PG 4mmHg EF Teich MM 52 % [ 52 - 72 ] AV Peak Catracho 1.25m/s [ 1.00 - 1.70 ] LVIDd 2D 5.55 cm [ 4.20 - 5.80 ] AV Peak PG 6mmHg LVIDd MM 6.22 cm [ 4.20 - 5.80 ] AV VTI 29.68cm LVIDs 2D 3.87 cm [ 2.50 - 4.00 ] LVOT Peak Catracho 0.99m/s [ 0.70 - 1.10 ] LVIDs MM 4.53 cm [ 2.50 - 4.00 ] LVOT VTI 23.81cm LVPWd 2D 1.02 cm [ 0.60 - 1.00 ] MV E Peak Catracho 0.88m/s [ 0.60 - 1.30 ] LVPWd MM 0.89 cm [ 0.60 - 1.00 ] MV A Peak Catracho 0.63m/s [ 1.00 - 1.20 ] IVSd 2D 1.16 cm [ 0.60 - 1.00 ] MV Decel Time 137msec [ 104 - 258 ] IVSd MM 1.16 cm [ 0.60 - 1.00 ] PV Peak Catracho 1.02m/s [ 0.40 - 0.80 ] LA Dimension MM 3.61 cm [ 3.00 - 4.00 ] TR Peak Catracho 2.93m/s [ 1.00 - 2.80 ] AoR Diam MM 3.71 cm [ 3.10 - 3.70 ] TR Peak PG 34mmHg LA Volume Index 20 cc/m2 [ 16 - 34 ] RVSP 37.00mmHg [ 10.00 - 36.00 ] ACS MM 2.45 cm [ 1.50 - 2.60 ] E` 0.09m/s E/E` 10 2D/MM Value Range Doppler ValueRange - FINDINGS: Interpretation Site: Exam was interpreted at [facility]. Left Ventricle: Normal left ventricular systolic function. No focal wall motionabnormalities. Mild concentric left ventricular hypertrophy. Left ventricle cavity is upperlimits of normal in size. Normal left ventricular diastolic function. Ejection fraction isvisually estimated at 65-70 %. Ejection fraction is measured at 67 %. Right Ventricle: Normal right ventricular size. Normal right ventricular systolicfunction. Left Atrium: The left atrium is normal in size. Right Atrium: The right atrium is normal in size. Atrial Septum: Normal atrial septum. Mitral Valve: Normal appearance of the mitral valve. Mild mitral valve regurgitation.There is no hemodynamically significant mitral stenosis by Doppler. Aortic Valve: No evidence of hemodynamically significant aortic stenosis by Doppler.Aortic cusps appear mildly sclerotic. Trileaflet aortic valve. Mild aortic valveregurgitation. Tricuspid Valve: Normal appearance of the tricuspid valve. Mild pulmonary hypertensionbased on right ventricular systolic pressure. Estimated peak RVSP is 37 mmHg. Mildtricuspid regurgitation. Pulmonic Valve: Normal appearance of the pulmonic valve. No pulmonic stenosis. Mildpulmonic regurgitation. Pericardium: Normal pericardium with no significant pericardial effusion. Aorta: Aortic root is mildly dilated. IVC: Normal size and normal respiratory collapse consistent with normal rightatrial pressure (<5 mmHg). CONCLUSIONS: Normal left ventricular systolic function. No focal wall motionabnormalities. Mild concentric left ventricular hypertrophy. Left ventricle cavity is upperlimits of normal in size. Normal left ventricular diastolic function. Ejection fraction isvisually estimated at 65-70 %. Ejection fraction is measured at 67 %. Normal right ventricular size. Normal right ventricular systolicfunction. Mild mitral valve regurgitation. Aortic cusps appear mildly sclerotic. Mild aortic valve regurgitation. Mild pulmonary hypertension based on right ventricular systolic pressure.Estimated peak RVSP is 37 mmHg. Mild tricuspid regurgitation. Mild pulmonic regurgitation. Aortic root is mildly dilated. Normal sinus rhythm. Electronically Signed By: Tian Lopez MD 2024-08-03 17:15:56 ULTRASOUND TECHNOL us Tian Lopez MD CV ECHO PROCEDURES Final Result from Last 3 Months Insurance [employer] PPO Care Teams Subassembly Assembler Relationship Specialty Start Date End Date Sanket Dee MD [address] [place] [address] PCP - General Family Medicine 07/18/24
--- OUTSIDE RECORDS SUMMARY | 2024-11-01 07:08 | XMS_ITS | Encounter Summary ---
Author Organization [facility] Healthcare Address [address] [place] [address] Care Team Providers Care Recreation Facility Attendant Name Role Phone Sanket Dee MD Primary Care Provider [phone] Encounter Details Date Type Department Care Team (Late st Contact Info) Description 08/30/2024 Orders Only [facility] [place] Health Information Management [address] [place] [id number] Tian Scott MD [address] [id number] Social History Tobacco Use Types Packs/Day Years Used Date Smoking Tobacco: Never Sex and Gender Information Value Date Recorded Sex Assigned at Not on file Legal Sex Male 4:51 AM FINANCIAL ANALYST Gender Identity Not on file Sexual Orientation Not on file documented as of this encounter Plan of Treatment Not on file documented as of this encounter Procedures Procedure Name Priority Date/Time Associated Diagnosis Comments SLEEP LAB/STUDY - RESULT 08/30/2024 documented in this encounter Results * SLEEP LAB/STUDY - RESULT (08/30/2024) us Tian Scott MD Edited Re sult - Final documented in this encounter Visit Diagnoses Not on filedocumented in this encounter Care Teams Recreation Facility Attendant Relationship Specialty Start Date End Date Sanket Dee MD [address] [place], [place] [id number] PCP - General Family Medicine 07/18/24 documented as of this encounter
--- OUTSIDE RECORDS SUMMARY | 2024-11-01 07:08 | XMS_ITS | Clinical Summary ---
Author Organization [facility] Address [address] [place] [address] Care Team Providers Care Crnp Name Role Phone Sanket Dee MD Primary Care Provider [phone] Allergies No known active allergies Medications allopurinoL [...] Lipid screening 07/18/2024 Ventricular premature depolarization 07/18/2024 Encounters Date Type Department Care Team Description 10/02/2024 9:00 AM AIRFIELD MANAGER Office Visit [facility] Medical Group Cardiology at [address] [place] [address] Angus Lopez MD Essential hypertension (Primary Dx); Ventricular premature depolarization; Obesity (BMI 30.0-34.9); ANTONI (obstructive sleep apnea) 08/30/2024 Orders Only [facility] [place] Health Information Management [address] [place] [address] Angus Lopez MD 08/03/2024 2:00 PM AIRFIELD MANAGER Ancillary Procedure [facility] Medical Group Cardiology at [address] [place] [address] Ventricular premature depolarization; Essential hypertension from Last 3 Months Surgical History Surgery Date Site/Laterality Comments HERNIA REPAIR Medical History Medical History Date Comments Hypertension Arrhythmia Anxiety Depression Sleep apnea Family History Medical History Relation Name Comments Alcohol abuse Father Jamal Pereira Arthritis Maternal Grandmother Katy Valdez Stroke Maternal Grandmother Katy Valdez Vision loss Maternal Grandmother Katy Valdez Multiple sclerosis Mother Relation Name Status Comments Father Jamal Pereira Maternal Grandmother Katy Valdez Mother Social History Tobacco Use Types Packs/Day Years Used Date Smoking Tobacco: Never Cigarettes Smokeless Tobacco: Never Tobacco Cessation:Counseling Given: Not Answered Sex and Gender Information Value Date Recorded Sex Assigned at Not on file Legal Sex Male 4:51 AM AIRFIELD MANAGER Gender Identity Not on file Sexual Orientation Not on file Obstetrics History Last Filed Vital Signs Vital Sign Reading Time Taken Comments Blood Pressure 128/86 10/02/2024 8:49 AM AIRFIELD MANAGER Pulse 69 10/02/2024 8:49 AM AIRFIELD MANAGER Temperature - - Respiratory Rate 14 07/18/2024 11:11 AM CDT Oxygen Saturation 96% 10/02/2024 8:49 AM AIRFIELD MANAGER Inhaled Oxygen Concentration - - Weight 112 kg (247 lb) 10/02/2024 8:49 AM AIRFIELD MANAGER Height 180.3 cm (5' 11 ) 10/02/2024 8:49 AM AIRFIELD MANAGER Body Mass Index 34.45 10/02/2024 8:49 AM AIRFIELD MANAGER Plan of Treatment Health Maintenance Due Date Last Done Comments Colon Cancer Screening-Colonoscopy 1965 Depression Screening 1965 Hepatitis C Screening 1965 Prostate Cancer Screening-PSA 1965 DTaP/Tdap/Td Vaccine (1 - Tdap) 1975 Hepatitis B Screening 1982 Regular Well Visit/Exam 18-64 1982 Covid-19 Vaccine ( season) 2024 06/24/2023, 08/22/2021, 12/19/2020, Additional history exists Influenza Vaccine (#1) 2024 , 07/27/2021, 07/23/2020, Additional history exists Zoster Vaccine Completed 06/24/2023, 07/02/2022 Pneumococcal vaccine <65 Aged Out No longer eligible based on patient's age to complete this topic Procedures Procedure Name Priority Date/Time Associated Diagnosis Comments SLEEP LAB/STUDY - RESULT 08/30/2024 TRANSTHORACIC ECHO (TTE) COMPLETE W DOPPLER/CF WO CONTRAST Routine 08/03/2024 2:26 PM AIRFIELD MANAGER Ventricular premature depolarization Essential hypertension from Last 3 Months Results * SLEEP LAB/STUDY - RESULT (08/30/2024) us Angus Lopez MD Edited Re sult - Final * TRANSTHORACIC ECHO (TTE) COMPLETE W DOPPLER/CF WO CONTRAST (08/03/2024 2:26 PM AIRFIELD MANAGER) Anatomical Region Laterality Modality Ultrasound 08/03/2024 1:53 PM AIRFIELD MANAGER Narrative 08/03/2024 5:16 PM AIRFIELD MANAGER [facility] Cardiology [address] , [address], [place] [address] P:[phone] P:[phone] Echocardiographic Report Patient Name: CANDELARIO PEREIRA A : 1965 Study Date: 08/03/2024 1:53:01 PM Gender: M Tech: SW Location: EDW Ref Provider: ANGUS LOPEZ Height(Cm): 180 BSA: 2.31 Weight(Kg): 107 Heart Rate: 62 BP: 144 / 88 Quality: Good Order Provider: ANGUS LOPEZ PROCEDURES: Echocardiographic Report: Transthoracic echocardiogram with [...] FINDINGS: Interpretation Site: Exam was interpreted at [facility] [place]. Left Ventricle: Normal left ventricular systolic function. [...] dilated. Normal sinus rhythm. Electronically Signed By: Angus Lopez MD 2024-08-03 17:15:56 AIRFIELD MANAGER Procedure Note Angus Lopez MD - 08/03/2024 [facility] Cardiology [address] , [address], [place] [address] P:[phone] P:[phone] Echocardiographic Report Patient Name: CANDELARIO PEREIRA A : 1965 Study Date: 08/03/2024 1:53:01 PM Gender: M Tech: Location: EDW Ref Provider: ANGUS LOPEZ Height(Cm): 180 BSA: 2.31 Weight(Kg): 107 Heart Rate: 62 BP: 144 / 88 Quality: Good Order Provider: ANGUS LOPEZ PROCEDURES: Echocardiographic Report: Transthoracic echocardiogram with [...] FINDINGS: Interpretation Site: Exam was interpreted at [facility]. Left Ventricle: Normal left ventricular systolic function. [...] dilated. Normal sinus rhythm. Electronically Signed By: Angus Lopez MD 2024-08-03 17:15:56 AIRFIELD MANAGER us Angus Lopez MD CV ECHO PROCEDURES Final Result from Last 3 Months Insurance [employer] PPO Care Teams Crnp Relationship Specialty Start Date End Date Sanket Dee MD [address] [place] [address] PCP - General Family Medicine 07/18/24
[2024-11-01 07:41] LABS: Hematocrit 41.1 % (42.0-52.0); Hemoglobin 14.2 g/dL (14.0-18.0); Mean Corpuscular HGB Conc 34.5 g/dl (32-36); Mean Corpuscular Volume 86.9 fl (80-100); Mean Platelet Volume 8.7 fl (7.4-10.4); Platelet Count Result 210 k/mm3 (150-375); Red Blood Count 4.73 M/mm3 (4.6-6.20); Red Cell Distribution Width 13.4 % (11.5-14.5); White Blood Count 8.6 K/mm3 (4.5-10.0)
[2024-11-01 08:03] LABS: Cholesterol 130 mg/dL (0-200); HDL Direct 29 mg/dL; Triglycerides 120 mg/dL (<150); Uric Acid 7.3 mg/dL (3.5-8.5)
[2024-11-01 08:17] LABS: LDL Cholesterol Direct 78 mg/dL
[2024-11-01 08:32] LABS: Prostate Specific Antigen 1.5 ng/mL (< OR = 4.0)
== END 2024-11-01 07:05 | disposition home or self-care (01) ==
PROVIDERS: PCP Family Medicine; Visit Provider Nurse Practitioner Family
DX: Z12.5 Encounter for screening for malignant neoplasm of prostate (principal); I10 Essential (primary) hypertension; E78.2 Mixed hyperlipidemia; N28.9 Disorder of kidney and ureter, unspecified; R31.9 Hematuria, unspecified; M1A.9XX0 Chronic gout, unspecified, without tophus (tophi); R53.83 Other fatigue
CPT/HCPCS: 36415; 80061; 84153; 84443; 84550; 85027

== ENCOUNTER 2025-02-25 16:26 | Outpatient (CLI) | payer OTHER, SELFPAY ==
--- OUTSIDE RECORDS SUMMARY | 2025-02-25 16:47 | XMS_ITS | Referral Summary ---
Author Organization [facility] Address [address] [place] [phone] Care Team Providers Care Men'S Locker Room Attendant Name Role Phone Sanket Dee MD Primary Care Provider [phone] Allergies No known active allergies Medications allopurinoL [...] on file Legal Sex Male 4:51 AM PLANT CARE WORKER Gender Identity Not on file Sexual Orientation Not on file Last Filed Vital Signs Vital Sign Reading Time Taken Comments Blood Pressure 128/86 10/02/2024 8:49 AM PLANT CARE WORKER Pulse 69 10/02/2024 8:49 AM PLANT CARE WORKER Temperature - - Respiratory Rate 14 07/18/2024 11:11 AM CDT Oxygen Saturation 96% 10/02/2024 8:49 AM PLANT CARE WORKER Inhaled Oxygen Concentration - - Weight 112 kg (247 lb) 10/02/2024 8:49 AM PLANT CARE WORKER Height 180.3 cm (5' 11) 10/02/2024 8:49 AM PLANT CARE WORKER Body Mass Index 34.45 10/02/2024 8:49 AM PLANT CARE WORKER Plan of Treatment Not on file Insurance [employer] PPO [facility] Address: [facility] [address] [place] [address] Care Teams Men'S Locker Room Attendant Relationship Specialty Start Date End Date Sanket Dee MD [address] [place] [address] PCP - General Family Medicine 07/18/24
--- OUTSIDE RECORDS SUMMARY | 2025-02-25 16:47 | XMS_ITS | Clinical Summary ---
Author Organization [facility] Address [address] [place] [phone] Care Team Providers Care Power Line Installer And Repairer Name Role Phone Sanket Dee MD Primary Care Provider [phone] Allergies No known active allergies Medications allopurinoL [...] Lipid screening 07/18/2024 Ventricular premature depolarization 07/18/2024 Surgical History Surgery Date Site/Laterality Comments HERNIA [...] on file Legal Sex Male 4:51 AM TELEHEALTH COORDINATOR Gender Identity Not on file Sexual Orientation Not on file Obstetrics History Last Filed Vital Signs Vital Sign Reading Time Taken Comments Blood Pressure 128/86 10/02/2024 8:49 AM TELEHEALTH COORDINATOR Pulse 69 10/02/2024 8:49 AM TELEHEALTH COORDINATOR Temperature - - Respiratory Rate 14 07/18/2024 11:11 AM CDT Oxygen Saturation 96% 10/02/2024 8:49 AM TELEHEALTH COORDINATOR Inhaled Oxygen Concentration - - Weight 112 kg (247 lb) 10/02/2024 8:49 AM TELEHEALTH COORDINATOR Height 180.3 cm (5' 11) 10/02/2024 8:49 AM TELEHEALTH COORDINATOR Body Mass Index 34.45 10/02/2024 8:49 AM TELEHEALTH COORDINATOR Plan of Treatment Health Maintenance Due Date Last Done Comments Colon Cancer Screening-Colonoscopy 1965 Depression Screening 1965 Hepatitis C Screening 1965 Prostate Cancer Screening-PSA 1964 DTaP/Tdap/Td Vaccine (1 - Tdap) 1975 Hepatitis B Screening 1982 Regular Well Visit/Exam 18-64 1982 Covid-19 Vaccine ( season) 2024 06/24/2023, 08/22/2021, 12/19/2020, Additional history exists Influenza Vaccine (Season Ended) 2025 07/02/2022, 07/27/2021, 07/23/2020, Additional history exists Zoster Vaccine Completed 06/24/2023, 07/02/2022 Pneumococcal vaccine <65 Aged Out No longer eligible based on patient's age to complete this topic Insurance [employer] PPO Care Teams Power Line Installer And Repairer Relationship Specialty Start Date End Date Sanket Dee MD [address] [place] [address] PCP - General Family Medicine 07/18/24
--- OUTSIDE RECORDS SUMMARY | 2025-02-25 16:47 | XMS_ITS | Encounter Summary ---
Author Organization [facility] Healthcare Address [address] [place] [address] Care Team Providers Care Dimensional Engineer Name Role Phone Sanket Dee MD Primary Care Provider Encounter Details Date Type Department Care Team (Late st Contact Info) Description 08/30/2024 Orders Only [facility] [place] [place] Health Information Management [address] [place] [address] Tian Scott MD [address] [place] [address] [facility] [address] [place] [address] Social History Tobacco Use Types Packs/Day Years Used Date Smoking Tobacco: Never Sex and Gender Information Value Date Recorded Sex Assigned at Not on file Legal Sex Male 4:51 AM SCRAP DROP CRANE OPERATOR Gender Identity Not on file Sexual Orientation Not on file documented as of this encounter Plan of Treatment Not on file documented as of this encounter Procedures Procedure Name Priority Date/Time Associated Diagnosis Comments SLEEP LAB/STUDY - RESULT 08/30/2024 documented in this encounter Results * SLEEP LAB/STUDY - RESULT (08/30/2024) Tian Scott MD Edited Re sult - Final documented in this encounter Visit Diagnoses Not on filedocumented in this encounter Care Teams Dimensional Engineer Relationship Specialty Start Date End Date Sanket Dee MD [address] [place] [phone] PCP - General Family Medicine 07/18/24 documented as of this encounter
[2025-02-25 18:22] LABS: Alanine Aminotransferase 23 U/L (6-50); Albumin Level 4.5 g/dL (3.5-5.1); Alkaline Phosphatase 60 U/L (38-126); Anion Gap 8 mmol/L (4-12); Aspartate Amino Transferase 26 U/L (17-59); Bilirubin,Total 0.6 mg/dL (0.2-1.3); Blood Urea Nitrogen 19 mg/dL (9-20); Calcium 9.5 mg/dL (8.4-10.2); Carbon Dioxide 27 mmol/L (22-30); Chloride 105 mmol/L (98-107); Estimated Glomerular Filt Rate > 60; Glucose 93 mg/dL (65-110); Potassium 3.8 mmol/L (3.4-5.0); Sodium 140 mmol/L (137-145); Total Protein 7.3 g/dL (6.3-8.2); Uric Acid 5.9 mg/dL (3.5-8.5)
== END 2025-02-25 16:27 | disposition home or self-care (01) ==
LOC: ANHLAB 16:30
PROVIDERS: PCP Family Medicine; Visit Provider Podiatrist Foot & Ankle Surgery
DX: M10.071 Idiopathic gout, right ankle and foot (principal)
CPT/HCPCS: 36415; 80053; 84550

== ENCOUNTER 2025-04-16 06:59 | Outpatient (CLI) | payer OTHER, SELFPAY ==
--- OUTSIDE RECORDS SUMMARY | 2025-04-16 07:03 | XMS_ITS | Referral Summary ---
Author Organization [facility] Address [address] [place] [address] Care Team Providers Care Chief Meter Reader Name Role Phone Sanket Dee MD Primary Care Provider Encounters Date Type Department Care Team Description 04/11/2025 8:15 AM CDT Office Visit [facility] Cardiology at [address] [place] [id number] Tian Scott MD Essential hypertension (Primary Dx); Ventricular premature depolarization; Obesity (BMI 30.0-34.9); ANTONI (obstructive sleep apnea); Hyperlipidemia LDL goal <100 from Last 3 Months Allergies No known active allergies Medications busPIRone (BUSPAR) 7.5 mg tablet Take 1 tablet (7.5 mg total) by mouth 2 (two) times a day 07/13/20 24 Active atorvastatin (LIPITOR) 40 mg tablet Take 1 tablet (40 mg total) by mouth daily 04/23/20 24 Active lisinopriL (PRINIVIL,ZESTRI L) 40 mg tablet Take 1 tablet (40 mg total) by mouth daily 07/02/20 24 Active metoprolol XL (TOPROL-XL) 100 mg 24 hr tablet Take 1 tablet (100 mg total) by mouth daily 06/25/20 24 Active amLODIPine (NORVASC) 5 mg tabletIndication s:Essential hypertension TAKE 1 TABLET(5 MG) BY MOUTH DAILY 30 tablet 11 04/09/20 25 Active allopurinoL (ZYLOPRIM) 300 mg tablet Take 1 tablet (300 mg total) by mouth daily 02/07/20 25 Active hydroCHLOROthiaz jose 12.5 mg tablet Take 1 tablet (12.5 mg total) by mouth daily 90 tablet 3 04/11/20 25 Active allopurinoL (ZYLOPRIM) 100 mg tablet Take 1 tablet (100 mg total) by mouth daily 06/05/20 24 025 Discontinued(Al ternate therapy) hydroCHLOROthiaz jose 12.5 mg tablet Take 1 tablet (12.5 mg total) by mouth daily 07/13/20 24 025 Discontinued(Re order) amLODIPine (NORVASC) 5 mg tabletIndication s:hypertension Take 1 tablet (5 mg total) by mouth daily 30 tablet 11 07/18/20 025 Discontinued Active Problems Problem Noted Date Diagnosed Date Hyperlipidemia LDL goal <100 04/11/2025 ANTONI (obstructive sleep apnea) 10/02/2024 Obesity (BMI 30.0-34.9) 07/18/2024 Hypersomnolence 07/18/2024 Essential hypertension 07/18/2024 Lipid screening 07/18/2024 Ventricular premature depolarization 07/18/2024 Social History Tobacco Use Types Packs/Day Years Used Date Smoking Tobacco: Never Smokeless Tobacco: Never Tobacco Cessation:Counseling Given: Not Answered Sex and Gender Information Value Date Recorded Sex Assigned at Not on file 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 Gender Identity Not on file Sexual Orientation Not on file Last Filed Vital Signs Vital Sign Reading Time Taken Comments Blood Pressure 130/83 04/11/2025 8:29 AM CDT Pulse 64 04/11/2025 8:11 AM CDT Temperature - - Respiratory Rate 14 07/18/2024 11:11 AM CDT Oxygen Saturation 98% 04/11/2025 8:11 AM CDT Inhaled Oxygen Concentration - - Weight 113.4 kg (250 lb) 04/11/2025 8:11 AM CDT Height 180.3 cm (5' 11) 04/11/2025 8:11 AM CDT Body Mass Index 34.87 04/11/2025 8:11 AM CDT Plan of Treatment Not on file Procedures Procedure Name Priority Date/Time Associated Diagnosis Comments POCT LIPID PANEL Routine 04/11/2025 8:06 AM CDT Hyperlipidemia LDL goal <100 from Last 3 Months Results * (ABNORMAL) POCT lipid panel (04/11/2025 8:06 AM CDT) Cholesterol, POC 127 <200 MG/DL HDL, POC 28(A) >=40 mg/dL Triglycerides, POC 114 <=149 mg/dL LDL Cholesterol POC 76 <=129 mg/dL Chol/HDL Ratio, POC 4.6 NONE Non-HDL Cholesterol, POC 99 NONE mg/dL Cholesterol Total, POC 127 30 - 199 mg/dL Capillary blood 04/11/2025 8 :06 AM CDT Tian Scott MD POINT OF CARE TEST ORDERA BLES Final Result from Last 3 Months Insurance [facility]/PPO Address: [facility] [address] [place] [address] Care Teams Chief Meter Reader Relationship Specialty Start Date End Date Sanket Dee MD [address] [place] [address] PCP - General Family Medicine 07/18/24
--- OUTSIDE RECORDS SUMMARY | 2025-04-16 07:03 | XMS_ITS | Clinical Summary ---
Author Organization [facility] Address [address] [place] [phone] Care Team Providers Care Hair Preparer Name Role Phone Sanket Dee MD Primary Care Provider + [phone] Allergies No known active allergies Medications busPIRone [...] (12.5 mg total) by mouth daily 07/13/20 025 Discontinued(Re order) amLODIPine (NORVASC) 5 mg tabletIndication s:hypertension Take 1 tablet (5 mg total) by mouth daily 30 tablet 11 07/18/20 24 025 Discontinued Active Problems Problem Noted Date Diagnosed Date Hyperlipidemia LDL goal <100 04/11/2025 ANTONI (obstructive sleep apnea) 10/02/2024 Obesity (BMI 30.0-34.9) 07/18/2024 Hypersomnolence 07/18/2024 Essential hypertension 07/18/2024 Lipid screening 07/18/2024 Ventricular premature depolarization 07/18/2024 Encounters Date Type Department Care Team Description 04/11/2025 8:15 AM CDT Office Visit [facility] Cardiology at [address] [place] [address] Tian Scott MD Essential hypertension (Primary Dx); Ventricular premature depolarization; Obesity (BMI 30.0-34.9); ANTONI (obstructive sleep apnea); Hyperlipidemia LDL goal <100 from Last 3 Months Surgical History Surgery Date Site/Laterality Comments HERNIA REPAIR Medical History Medical History Date Comments Hypertension Arrhythmia Anxiety Depression Sleep apnea Family History Medical History Relation Name Comments Alcohol abuse Father Jamal Pereira Arthritis Maternal Grandmother Katy Valdez Diabetes Maternal Grandmother Katy Valdez Stroke Maternal Grandmother [...] on file 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 Gender Identity Not on file Sexual Orientation [...] 04/11/2025 8:11 AM CDT Plan of Treatment Health Maintenance Due Date Last Done Comments Colon Cancer Screening-Colonoscopy 1964 Depression Screening 1964 Hepatitis C Screening 1964 Prostate Cancer Screening-PSA 1964 DTaP/Tdap/Td Vaccine (1 - Tdap) 1975 Hepatitis B Screening 1982 Regular Well Visit/Exam 18-64 1982 Covid-19 Vaccine ( season) 2024 06/24/2023, 08/22/2021, 12/19/2020, Additional history exists Influenza Vaccine (#1) 2025 , 07/27/2021, 07/23/2020, Additional history exists Zoster [...] Capillary blood 04/11/2025 8 :06 AM CDT us Tian Scott MD POINT OF CARE TEST ORDERA BLES Final Result from Last 3 Months Insurance [facility] Care Teams Hair Preparer Relationship Specialty Start Date End Date Sanket Dee MD [address] [place] [address] PCP - General Family Medicine 07/18/24
--- OUTSIDE RECORDS SUMMARY | 2025-04-16 07:03 | XMS_ITS | Encounter Summary ---
Author Organization [facility] Address [address] [place] [address] Care Team Providers Care Algorithm Developer Name Role Phone Sanket Dee MD Primary Care Provider Encounter Details Date Type Department Care Team (Late st Contact Info) Description 08/30/2024 Orders Only [facility] Information Management [address] [place] [id number] Tian Scott MD [address] [facility] [address] [address] [facility] [address] [place] [address] Social History Tobacco Use Types Packs/Day Years Used Date Smoking Tobacco: Never Sex and Gender Information Value Date Recorded Sex Assigned at Not on file 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
[2025-04-16 07:46] LABS: Creatine Kinase 42 U/L (55-170)
[2025-04-16 07:47] LABS: Alanine Aminotransferase 26 U/L (6-50); Albumin Level 4.6 g/dL (3.5-5.1); Alkaline Phosphatase 69 U/L (38-126); Anion Gap 6 mmol/L (4-12); Aspartate Amino Transferase 29 U/L (17-59); Bilirubin,Total 1.1 mg/dL (0.2-1.3); Blood Urea Nitrogen 26 mg/dL (9-20); Calcium 9.8 mg/dL (8.4-10.2); Carbon Dioxide 29 mmol/L (22-30); Chloride 101 mmol/L (98-107); Estimated Glomerular Filt Rate 59; Glucose 101 mg/dL (65-110); Potassium 4.2 mmol/L (3.4-5.0); Sodium 136 mmol/L (137-145); Total Protein 7.7 g/dL (6.3-8.2)
[2025-04-19 12:08] LABS: Free Testosterone (Direct) 8.1 pg/mL (6.6-18.1)
[2025-04-23 00:07] LABS: Testosterone, Total, LC/MS 350 ng/dL (.)
== END 2025-04-16 07:00 | disposition home or self-care (01) ==
LOC: ANHLAB 07:01
PROVIDERS: PCP Family Medicine; Referring Provider Nurse Practitioner Family
DX: I10 Essential (primary) hypertension (principal); E78.2 Mixed hyperlipidemia; E55.9 Vitamin D deficiency, unspecified; N28.9 Disorder of kidney and ureter, unspecified; R31.9 Hematuria, unspecified; N52.9 Male erectile dysfunction, unspecified; G47.33 Obstructive sleep apnea (adult) (pediatric); M1A.9XX0 Chronic gout, unspecified, without tophus (tophi); R53.83 Other fatigue; M79.10 Myalgia, unspecified site; Z79.899 Other long term (current) drug therapy; Z12.5 Encounter for screening for malignant neoplasm of prostate
CPT/HCPCS: 36415; 80053; 82306; 82550; 84403